=== PATIENT | female | born 1985 | race African-American/Black ===

== ENCOUNTER 2021-06-12 07:23 | Emergency (ER) | payer OTHER, SELFPAY ==
[2021-06-12 07:28] VITALS: BP 122/64; PULSE 74; RESP 16; TEMP 37.2; O2SAT 100
[2021-06-12 07:33] VITALS: PULSE 65; RESP 15; O2SAT 100
--- NOTE | 2021-06-12 07:49 | ECG_ITS ---
Measurements Intervals [place] Rate: 66 P: 67 VT: 176 QRS: 74 QRSD: 85 T: 62 QT: 381 QTc: 401 Interpretive Statements SINUS RHYTHM NORMAL ECG Electronically Signed On 06-12-2021 8:06:36 [employer] by Kaleb Akers D.O.
[2021-06-12 07:53] VITALS: PULSE 67; RESP 16; O2SAT 100
[2021-06-12 08:00] VITALS: PULSE 72; RESP 14; O2SAT 100
--- NOTE | 2021-06-12 08:06 | ED.GENADULT ---
HPI - General Adult General Chief complaint: Extremity Problem,Nontraumatic Stated complaint: shocked Time Seen by Provider: 06/12/21 07:36 Source: patient and RN notes reviewed History of Present Illness HPI narrative: Patient is a 35 y/o female complaining of left arm numbness and right leg numbness after being shocked at work. 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 She states that she touches the belt with left hand and was shocked multiple times. She also bumped onto the base of the conveyer belt with her right leg and was shocked. She has some numbness to left arm and right leg. She is able to move all 4 extremities and walk without difficulty. She states that this started about 5:00 AM. Her symptoms are improving. Related Data Allergies Allergy/AdvReac Type Severity Reaction Status Date / Time No Known Allergies Allergy Verified 06/12/21 07:32 Review of Systems Constitutional: Constitutional: Denies chills, Denies fever(s), Denies headache(s) and Denies weakness Eyes: Eyes: Denies blurry vision ENT: Denies headache(s) and Denies neck pain Cardiovascular: Cardiovascular: Denies chest pain and Denies dyspnea Respiratory: Respiratory: Denies cough and Denies dyspnea Gastrointestinal: Gastrointestinal: Denies abdominal pain, Denies diarrhea, Denies nausea and Denies vomiting Genitourinary: Genitourinary: Denies hematuria and Denies dysuria Musculoskeletal: Musculoskeletal: Denies back pain and Denies neck pain Neurologic: Denies headache(s), Reports numbness, Reports tingling and Denies weakness Exam Const: General: no acute distress and well developed Orientation/consciousness: oriented to person, oriented to place, oriented to time and patient oriented x3 HENMT: Head: normocephalic Ears: external ears normal General nose exam: Normal external nose present Eyes: General: appearance normal, both eyes and all related structures Conjunctivae: conjunctivae normal Neck: Neck: normal visual inspection and full ROM Chest: Chest palpation & inspection: normal inspection of the chest and no tenderness Resp: Effort & Inspection: normal respiratory effort Auscultation: clear to auscultation bilaterally Cardio: Rate: regular rate Rhythm: regular rhythm GI: GI Palp: No abdominal tenderness and Yes Soft to palpation Skin: General skin exam: normal color and turgor normal Neuro: General: oriented to person, oriented to place, oriented to time and patient oriented x3 Cranial nerves: Yes CN's II-XII intact bilaterally Cognition (Neuro): normal cognition Speech: normal speech Motor exam (neuro): 5/5 motor strength present throughout Sensory Exam: Abnormal lower extremity sensory exam (decreased sensation right leg) and Upper extremity sensory exam abnormal (decreased sensation left arm) Coordination: [id number] test normal and [id number] test normal Extrem: General: normal to inspection, full ROM and no pedal edema Psych: Appearance: grossly normal Mental Status: mental status grossly normal Affect: normal affect Course Vital Signs Vital signs: Vital Signs Temperature 37.2 C 06/12/21 07:28 Pulse Rate 74 06/12/21 07:28 Respiratory Rate 16 06/12/21 07:28 Blood Pressure 122/64 06/12/21 07:28 Pulse Oximetry 100 06/12/21 07:28 Temperature 37.2 C 06/12/21 07:28 Pulse Rate 59 L 06/12/21 11:27 Respiratory Rate 16 06/12/21 11:27 Blood Pressure 109/73 06/12/21 11:27 Pulse Oximetry 100 06/12/21 11:27 Medical Decision Making Vital Signs Vital Signs: Vital Signs Temperature 37.2 C 06/12/21 07:28 Pulse Rate 74 06/12/21 07:28 Respiratory Rate 16 06/12/21 07:28 Blood Pressure 122/64 06/12/21 07:28 Pulse Oximetry 100 06/12/21 07:28 Temperature 37.2 C 06/12/21 07:28 Pulse Rate 59 L 06/12/21 11:27 Respiratory Rate 16 06/12/21 11:27 Blood Pressure 109/73 06/12/21 11:27 Pulse Oximetry 100 06/12/21 11:27 Lab Data
[2021-06-12 08:35] LABS: Alanine Aminotransferase 13 U/L (4-35); Albumin Level 4.7 g/dL (3.5-5.1); Alkaline Phosphatase 81 U/L (38-126); Anion Gap 8 mmol/L (8-16); Aspartate Amino Transferase 25 U/L (14-36); Bilirubin,Total 0.4 mg/dL (0.2-1.3); Blood Urea Nitrogen 17 mg/dL (7-17); Calcium 9.4 mg/dL (8.4-10.2); Carbon Dioxide 21 mmol/L (22-30); Chloride 109 mmol/L (98-107); Creatine Kinase 156 U/L (30-135); Estimated CRCL calculation 89 ml/min; Estimated Glomerular Filt Rate > 60; Glucose 101 mg/dL (65-110); Potassium 3.9 mmol/L (3.4-5.0); Sodium 138 mmol/L (137-145)
[2021-06-12 08:47] LABS: Basophils Percent Auto 0.4 % (0.2-1.2); Eosinophils Absolute Auto 0.1 K/mm3 (0-0.3); Eosinophils Percent Auto 2.2 % (0-4.4); Hematocrit 38.1 % (37.0-47.0); Hemoglobin 12.4 g/dL (12.0-15.0); Immature Granulocyte Absolute 0.04 K/mm3 (0.00-0.031); Immature Granulocyte Percent A 0.8 % (0-0.5); Lymphocytes Absolute Auto 2.24 K/mm3 (0.9-3.2); Lymphocytes Percent Auto 45.3 % (18.3-44.2); Mean Corpuscular HGB Conc 32.5 g/dl (32-36); Mean Corpuscular Hemoglobin 31.6 pg (26-34); Mean Corpuscular Volume 97.2 fl (80-100); Mean Platelet Volume 10.3 fl (7.4-10.4); Monocytes Absolute Auto 0.5 K/mm3 (0.1-0.6); Monocytes Percent Auto 9.3 % (2.6-8.5); Neutrophils Absolute Auto 2.1 K/mm3 (1.3-6.7); Platelet Count Result 262 k/mm3 (150-375); Red Blood Count 3.92 M/mm3 (4.2-5.4); Red Cell Distribution Width 11.8 % (11.5-14.5)
[2021-06-12 08:50] LABS: Add Urine Microscopic? YES; Appearance Urine Clear (Clear); Bacteria Urine Trace /hpf; Bilirubin Urine Negative (Negative); Blood Urine 3+ (Negative); Color Urine Yellow (Yellow); Glucose Urine UA Negative (Negative); Ketones Urine Negative (Negative); Leukocyte Esterase Ur Negative LEU/UL (Negative); Mucus Urine Rare /lpf; Nitrate Urine Negative (Negative); Protein Urine Negative (Negative); RBC Urine 0-2 /hpf (0-2); Specific Grav Ur 1.016 (1.001-1.035); Squamous Epithelial Cell Urine Many /hpf (Few); Urobilinogen Urine Negative mg/dL (<2.0)
[2021-06-12] MEDS: SODIUM CHLORIDE 0.9% IV 1,000 ML 999 ML IV CONT (09:50)
[2021-06-12 11:27] VITALS: BP 109/73; PULSE 59; RESP 16; O2SAT 100
== END 2021-06-12 11:35 | disposition home or self-care (01) ==
PROVIDERS: Emergency Provider Emergency Medicine
DX: R20.0 Anesthesia of skin (principal); W86.1XXA Exposure to industrial wiring, appliances and electrical machinery, initial encounter
CPT/HCPCS: 36415; 80053; 81001; 81025; 82550; 85025; 93005; 96360; 96361; 99283; J7030